=== PATIENT | female | born 1985 | race African-American/Black ===

== ENCOUNTER 2017-08-18 09:52 | Emergency (ER) | payer MEDICAID ==
[~2017-08-18] VITALS: Ht 160 cm; Wt 125.6 kg
[2017-08-18] MEDS ORDERED: IPRATROPIUM BROM 0.5 MG/2.5ML INH SOL NEB ONE (10:30)
[2017-08-18] MEDS ORDERED: ALBUTEROL SULF 2.5 MG/0.5ML(0.5%) NEB SOLN NEB ONE (10:30)
[2017-08-18] MEDS ORDERED: methylPREDNISolone SOD SUCC 125 MG/2 ML VL IM ONE (10:30)
[2017-08-18 10:33] VITALS: BP 145/76
[2017-08-18 10:54] LABS: Basophils # (auto) 0.1 uL; Basophils % (auto) 1.1 % (0.0-2.0); Eosinophils # (auto) 0.4 uL; Eosinophils % (auto) 5.3 % (0.0-7.0); Hematocrit 37.7 % (36.0-46.0); Hemoglobin 12.5 g/dL (12.2-16.2); Lymphocytes # (auto) 2.4 uL; Lymphocytes % (auto) 35.4 % (10.0-50.0); Mean Corpuscular Hemoglobin 28.9 pg (28.0-32.0); Mean Corpuscular Hgb Conc. 33.1 g/dL (32.0-36.0); Mean Corpuscular Volume 87.3 fL (80.0-100.0); Monocytes # (auto) 0.4 uL; Monocytes % (auto) 5.3 % (0.0-12.0); Neutrophils # (auto) 3.5 uL; Neutrophils % (auto) 52.9 % (37.0-80.0); Platelet Count (auto) 286 10^3/uL (140-450); Red Blood Cells 4.32 10^6/uL (4.0-5.20); Red Cell Distribution Width 14.5 % (11.8-14.3); White Blood Cell 6.7 10^3/uL (4.4-10.8)
[2017-08-18 11:18] LABS: Alanine Aminotransferase 12 U/L (13-56); Albumin 3.3 g/dL (3.4-5.0); Alkaline Phosphatase 85 U/L (45-117); Anion Gap 8 (5-15); Aspartate Aminotransferase 10 U/L (15-37); Bilirubin, Total 0.2 mg/dL (0.2-1.0); Blood Urea Nitrogen 12 mg/dL (7-18); Calcium 8.9 mg/dL (8.5-10.1); Carbon Dioxide 21 mmol/L (21-32); Chloride 108 mmol/L (98-107); GFR African American 141 mL/min; GFR Non-African American 116 mL/min; Glucose 96 mg/dL (74-106); Potassium 3.8 mmol/L (3.5-5.1); Sodium 137 mmol/L (136-145); Total Protein 7.6 g/dL (6.4-8.2)
[2017-08-18 11:34] LABS: Urine Bacteria FEW /hpf (None Seen); Urine Blood 1+ /uL (Negative); Urine Specific Gravity 1.016 (1.001-1.035); Urine WBC 2 /hpf (0 - 5)
[2017-08-19] MEDS ORDERED: ALBU2TAB4 PO ×2 (05:17)
== END 2017-08-18 12:23 | disposition home or self-care (01) ==
LOC: ER 09:52
DX: J45.901 Unspecified asthma with (acute) exacerbation (principal)
CPT/HCPCS: 36415; 71045; 80053; 81001; 84484; 85025; 94640; 96372; 99285; J2930

== ENCOUNTER 2017-08-18 21:52 | Inpatient (IN) | payer MEDICAID ==
[~2017-08-18] VITALS: Ht 167.6 cm; Wt 125.5 kg
[2017-08-18 22:25] LABS: Basophils # (auto) 0 uL; Basophils % (auto) 0.4 % (0.0-2.0); Eosinophils # (auto) 0 uL; Eosinophils % (auto) 0.1 % (0.0-7.0); Hematocrit 38.1 % (36.0-46.0); Hemoglobin 12.7 g/dL (12.2-16.2); Lymphocytes # (auto) 1.3 uL; Mean Corpuscular Hgb Conc. 33.2 g/dL (32.0-36.0); Mean Corpuscular Volume 87.3 fL (80.0-100.0); Monocytes # (auto) 0.1 uL; Monocytes % (auto) 0.9 % (0.0-12.0); Neutrophils # (auto) 8.2 uL; Neutrophils % (auto) 85.6 % (37.0-80.0); Nucleated Red Blood Cells % 0.1 %; Platelet Count (auto) 347 10^3/uL (140-450); Red Blood Cells 4.36 10^6/uL (4.0-5.20); Red Cell Distribution Width 14.1 % (11.8-14.3); White Blood Cell 9.6 10^3/uL (4.4-10.8)
[2017-08-18 22:42] LABS: Alanine Aminotransferase 16 U/L (13-56); Albumin 3.4 g/dL (3.4-5.0); Anion Gap 14 (5-15); Aspartate Aminotransferase 7 U/L (15-37); BUN/Creatinine Ratio 10.5; Blood Urea Nitrogen 10 mg/dL (7-18); Calcium 9.6 mg/dL (8.5-10.1); Carbon Dioxide 18 mmol/L (21-32); Chloride 105 mmol/L (98-107); GFR African American 88 mL/min; GFR Non-African American 72 mL/min; Glucose 207 mg/dL (74-106); Potassium 3.4 mmol/L (3.5-5.1); Sodium 137 mmol/L (136-145)
[2017-08-18 22:46] LABS: Alkaline Phosphatase 86 U/L (45-117); Bilirubin, Total 0.3 mg/dL (0.2-1.0); Total Protein 7.8 g/dL (6.4-8.2)
[2017-08-18 23:11] LABS: Urine Bacteria NONE SEEN /hpf (None Seen); Urine Blood 1+ /uL (Negative); Urine Mucus FEW (None Seen); Urine Specific Gravity 1.022 (1.001-1.035); Urine WBC 2 /hpf (0 - 5)
[2017-08-18] MEDS ORDERED: IPRATROPIUM BROM 0.5 MG/2.5ML INH SOL NEB ONE (23:15)
[2017-08-18] MEDS ORDERED: ALBUTEROL SULF 2.5 MG/0.5ML(0.5%) NEB SOLN NEB ONE (23:15)
[2017-08-18] MEDS ORDERED: SODIUM CHLORIDE 0.9% 1,000 ML IV ONE (23:15)
[2017-08-18] MEDS ORDERED: LEVOFLOXACIN 750MG 150 ML IV ONE (23:15)
[2017-08-18] MEDS ORDERED: methylPREDNISolone SOD SUCC 125 MG/2 ML VL IV ONE (23:15)
[2017-08-18 23:24] LABS: INR 0.95 (0.9-1.15); Partial Thromboplastin Time 23.8 sec (22.64-33.71); Prothrombin Time 10.4 sec (9.37-12.3)
[2017-08-18 23:26] LABS: Alcohol, Urine < 3.0 mg/dL (0-5); Amphetamine Screen, Urine NEGATIVE (NEGATIVE); Barbiturate Scree,Urine NEGATIVE (NEGATIVE); Benzodiazephine Screen, Urine NEGATIVE (NEGATIVE); Cannabinoid Screen, Urine NEGATIVE (NEGATIVE); Cocaine Screen, Urine NEGATIVE (NEGATIVE); Opiate Scree,Urine NEGATIVE (NEGATIVE); Phencyclidine Screen, Urine NEGATIVE (NEGATIVE)
[2017-08-18] MEDS ORDERED: IOHEXOL 350 MG/ML 100ML IJ ONE (23:56)
[2017-08-19] VITALS (7 sets, daily range): BP systolic 124–138; BP diastolic 57–85
[2017-08-19] MEDS ORDERED: diphenhdrAMINE HCL 50 MG/1 ML VL IV ONE (00:15)
[2017-08-19] MEDS ORDERED: ENOXAPARIN SOD 120 MG/0.8 ML SYRINGE SC ONE (01:30)
[2017-08-19] MEDS ORDERED: ALBUTEROL SULF 2.5 MG/0.5ML(0.5%) NEB SOLN NEB PRN (03:15)
[2017-08-19] MEDS ORDERED: HYDROcodone-ACET 5/325MG TAB PO PRN (03:15)
[2017-08-19] MEDS ORDERED: TEMAZEPAM 15 MG CAP PO PRN (03:15)
[2017-08-19] MEDS ORDERED: ACETAMINOPHEN 325 MG TAB PO PRN (03:15)
[2017-08-19] MEDS ORDERED: IPRATROPIUM BROM 0.5 MG/2.5ML INH SOL NEB PRN (03:15)
[2017-08-19] MEDS ORDERED: ONDANSETRON HCL 4 MG/2 ML VIAL IV PRN (03:15)
[2017-08-19] MEDS: SODIUM CHLORIDE 0.9% 1,000 ML IV SCH ×2 (03:47→16:57)
[2017-08-19] MEDS: cefTRIAXone 1GM/10ml IVPUSH 10 ML IV SCH (04:28)
[2017-08-19] MEDS ORDERED: ALBU2TAB4 PO ×2 (05:17)
[2017-08-19] MEDS: ENOXAPARIN SOD 40 MG/0.4 ML SYRINGE SC SCH (10:19)
[2017-08-19] MEDS: methylPREDNISolone SOD SUCC 125 MG/2 ML VL IV SCH ×2 (10:20→21:33)
[2017-08-19] MEDS: FAMOTIDINE 20 MG TAB PO SCH ×2 (10:20→21:33)
[2017-08-20] MEDS: cefTRIAXone 1GM/10ml IVPUSH 10 ML IV SCH (04:01)
[2017-08-20 05:17] LABS: Basophils # (auto) 0.1 uL; Basophils % (auto) 0.5 % (0.0-2.0); Eosinophils # (auto) 0 uL; Hematocrit 36.2 % (36.0-46.0); Lymphocytes # (auto) 1.2 uL; Mean Corpuscular Hemoglobin 28.8 pg (28.0-32.0); Mean Corpuscular Hgb Conc. 33.2 g/dL (32.0-36.0); Mean Corpuscular Volume 86.9 fL (80.0-100.0); Monocytes # (auto) 0.2 uL; Monocytes % (auto) 0.9 % (0.0-12.0); Neutrophils # (auto) 15.1 uL; Neutrophils % (auto) 91.6 % (37.0-80.0); Platelet Count (auto) 355 10^3/uL (140-450); Red Blood Cells 4.17 10^6/uL (4.0-5.20); Red Cell Distribution Width 14.4 % (11.8-14.3); White Blood Cell 16.5 10^3/uL (4.4-10.8)
[2017-08-20 05:40] VITALS: BP 120/63
[2017-08-20 05:50] LABS: Albumin 3.3 g/dL (3.4-5.0); BUN/Creatinine Ratio 22.4; Bilirubin, Total 0.2 mg/dL (0.2-1.0); Magnesium 2.5 mg/dL (1.6-2.6); Phosphorus 2.9 mg/dL (2.5-4.90); Potassium 3.7 mmol/L (3.5-5.1); Total Protein 7.4 g/dL (6.4-8.2)
[2017-08-20] MEDS: SODIUM CHLORIDE 0.9% 1,000 ML IV SCH (06:33)
[2017-08-20 07:29] VITALS: BP 133/72
[2017-08-20] MEDS: methylPREDNISolone SOD SUCC 125 MG/2 ML VL IV SCH (10:04)
[2017-08-20] MEDS: ENOXAPARIN SOD 40 MG/0.4 ML SYRINGE SC SCH (10:04)
[2017-08-20] MEDS: FAMOTIDINE 20 MG TAB PO SCH (10:04)
[2017-08-20 11:35] VITALS: BP 128/67
[2017-08-20] MEDS ORDERED: PRE5T PO ×2 (13:19)
[2017-08-20] MEDS ORDERED: FLUT250M2 IN ×2 (13:19)
== END 2017-08-20 16:16 | disposition home or self-care (01) | DRG 134 ==
LOC: EDBD 21:52 → ER 21:52 → OVERFLOW 21:53 → WEST WING 08-19 04:00
PROVIDERS: ADMIT Nurse Practitioner; ATTEND Nurse Practitioner
DX: I26.99 Other pulmonary embolism without acute cor pulmonale (principal); J45.901 Unspecified asthma with (acute) exacerbation; I10 Essential (primary) hypertension; J20.9 Acute bronchitis, unspecified; E66.01 Morbid (severe) obesity due to excess calories; Z87.01 Personal history of pneumonia (recurrent); Z82.5 Family history of asthma and other chronic lower respiratory diseases; Z91.013 Allergy to seafood; Z91.018 Allergy to other foods
CPT/HCPCS: 36415; 71045; 71275; 80053; 80307; 81001; 81025; 83036; 83735; 83880; 84100; 84443; 84484; 85025; 85379; 85610; 85730; 87400; 93005; 94640; 94761; 96365; 96366; 96372; 96375; J1956

== ENCOUNTER 2018-10-10 | Observation (INO) | payer MEDICAID ==
[~2018-10-10] VITALS: Ht 160 cm; Wt 99.8 kg
[~2018-10-10] MED LIST: ALBU2TAB4 PO; FLUT250M2 IN; PRE5T PO
[2018-10-10] MEDS ORDERED: PREN-145 OR (00:34)
[2018-10-10] MEDS ORDERED: FERR27TA2 PO (00:35)
[2018-10-10] MEDS ORDERED: LACTATED RINGER'S 1,000 ML IV ONE (01:07)
[2018-10-10] MEDS ORDERED: TERBUTALINE SULFATE 1 MG/ML 1ML VIAL SC ONE (01:11)
[2018-10-10] MEDS: TERBUTALINE SULFATE 1 MG/ML 1ML VIAL SC SCH ×2 (01:17→02:25)
== END 2018-10-10 03:15 | disposition home or self-care (01) | DRG 563 ==
LOC: LDRP
PROVIDERS: ADMIT Obstetrics & Gynecology; ATTEND Obstetrics & Gynecology
DX: O60.02 Preterm labor without delivery, second trimester (principal); J45.909 Unspecified asthma, uncomplicated; O99.512 Diseases of the respiratory system complicating pregnancy, second trimester; Z3A.26 26 weeks gestation of pregnancy
CPT/HCPCS: 59025; 81002; 96372; G0378; J3105

== ENCOUNTER 2018-12-05 22:02 | Observation (INO) | payer MEDICAID ==
[~2018-12-05] VITALS: Ht 162.6 cm; Wt 115.7 kg
[~2018-12-05 22:02] MED LIST changes: +FERR27TA2 PO; +PREN-145 OR
== END 2018-12-05 23:14 | disposition home or self-care (01) | DRG 565 ==
LOC: LDRP 22:02
PROVIDERS: ADMIT Obstetrics & Gynecology; ATTEND Obstetrics & Gynecology
DX: O47.1 False labor at or after 37 completed weeks of gestation (principal); O46.93 Antepartum hemorrhage, unspecified, third trimester; Z3A.38 38 weeks gestation of pregnancy
CPT/HCPCS: 59025; 81002; G0378

== ENCOUNTER 2018-12-29 16:25 | Observation (INO) | payer OTHER, MEDICAID ==
[~2018-12-29 16:25] MED LIST changes: -PRE5T PO
[2018-12-29 18:03] LABS: Alcohol, Urine < 3.0 mg/dL (0-5); Amphetamine Screen, Urine NEGATIVE (NEGATIVE); Barbiturate Scree,Urine NEGATIVE (NEGATIVE); Benzodiazephine Screen, Urine NEGATIVE (NEGATIVE); Cannabinoid Screen, Urine NEGATIVE (NEGATIVE); Cocaine Screen, Urine NEGATIVE (NEGATIVE); Opiate Scree,Urine NEGATIVE (NEGATIVE); Phencyclidine Screen, Urine NEGATIVE (NEGATIVE)
[2018-12-29 18:08] LABS: Urine Bacteria NONE SEEN /hpf (None Seen); Urine Blood Negative /uL (Negative); Urine Specific Gravity 1.018 (1.001-1.035); Urine WBC 5 /hpf (0 - 5)
[2018-12-29 18:09] LABS: Basophils # (auto) 0 uL; Basophils % (auto) 0.3 % (0.0-2.0); Eosinophils # (auto) 0 uL; Eosinophils % (auto) 0.6 % (0.0-7.0); Hematocrit 34.8 % (36.0-46.0); Hemoglobin 11.9 g/dL (12.2-16.2); Lymphocytes # (auto) 1.5 uL; Lymphocytes % (auto) 24.6 % (10.0-50.0); Mean Corpuscular Hemoglobin 31.3 pg (28.0-32.0); Mean Corpuscular Hgb Conc. 34.2 g/dL (32.0-36.0); Mean Corpuscular Volume 91.6 fL (80.0-100.0); Monocytes # (auto) 0.2 uL; Monocytes % (auto) 3.7 % (0.0-12.0); Neutrophils # (auto) 4.3 uL; Neutrophils % (auto) 70.8 % (37.0-80.0); Platelet Count (auto) 229 10^3/uL (140-450); Red Cell Distribution Width 14.5 % (11.8-14.3)
[2018-12-29 18:12] LABS: Albumin 2.5 g/dL (3.4-5.0); BUN/Creatinine Ratio 9.7; Potassium 3.8 mmol/L (3.5-5.1)
[2018-12-29 18:14] LABS: Bilirubin, Total 0.2 mg/dL (0.2-1.0); Total Protein 6.6 g/dL (6.4-8.2)
[2018-12-29 18:22] LABS: INR < 0.93 (0.9-1.15); Partial Thromboplastin Time 25.8 sec (23.64-32.05)
[2019-01-02 05:37] LABS: RPR Non Reactive (Non Reactive)
[2019-01-02 05:38] LABS: Rubella Antibodies, IgG 0.92 index (Immune >0.99)
== END 2018-12-29 19:25 | disposition home or self-care (01) | DRG 566 ==
LOC: LDRP 16:25
PROVIDERS: ADMIT Obstetrics & Gynecology; ATTEND Obstetrics & Gynecology
DX: O36.8130 Decreased fetal movements, third trimester, not applicable or unspecified (principal); O26.893 Other specified pregnancy related conditions, third trimester; R10.9 Unspecified abdominal pain; Z3A.38 38 weeks gestation of pregnancy
CPT/HCPCS: 36415; 59025; 76805; 76818; 80053; 80307; 81001; 81002; 82962; 85025; 85610; 85730; 86592; 86703; 86762; 86850; 86900; 86901; 87340; G0378

== ENCOUNTER 2021-02-10 23:46 | Emergency (ER) | payer MEDICAID, OTHER ==
[~2021-02-10] VITALS: Ht 162.6 cm; Wt 131.5 kg
[2021-02-11 02:49] LABS: Basophils # (auto) 0.1 10 ^3/uL (0-0.2); Basophils % (auto) 0.6 % (0.0-2.0); Eosinophils # (auto) 0 10 ^3/uL (0-0.8); Eosinophils % (auto) 0.3 % (0.0-7.0); Hematocrit 25.6 % (36.0-46.0); Hemoglobin 8.7 g/dL (12.2-16.2); Lymphocytes # (auto) 1.6 10 ^3/uL (0.4-5.4); Lymphocytes % (auto) 16.1 % (10.0-50.0); Mean Corpuscular Hemoglobin 29.8 pg (28.0-32.0); Mean Corpuscular Hgb Conc. 33.9 g/dL (32.0-36.0); Monocytes # (auto) 0.2 10 ^3/uL (0-1.3); Neutrophils # (auto) 8.1 10 ^3/uL (1.6-8.6); Red Blood Cells 2.91 10^6/uL (4.0-5.20); Red Cell Distribution Width 14.5 % (11.8-14.3)
[2021-02-11 03:05] LABS: Calcium 8.3 mg/dL (8.5-10.1)
[2021-02-11 03:10] LABS: BUN/Creatinine Ratio 13.9; Bilirubin, Total 0.3 mg/dL (0.2-1.0); Total Protein 6.6 g/dL (6.4-8.2)
[2021-02-11] MEDS ORDERED: METHYLERGONOVINE MALEATE 0.2 MG/ML AMP IM ONE (04:15)
[2021-02-11 05:58] VITALS: BP 129/65
== END 2021-02-11 06:34 | disposition home or self-care (01) ==
LOC: ER 23:48
DX: O03.9 Complete or unspecified spontaneous abortion without complication (principal); D64.9 Anemia, unspecified; J45.909 Unspecified asthma, uncomplicated; Z79.899 Other long term (current) drug therapy; Z91.013 Allergy to seafood
CPT/HCPCS: 36415; 80053; 84702; 85025; 86850; 86900; 86901; 96372; 99285; J2210

== ENCOUNTER 2025-07-14 01:06 | Inpatient (IN) | payer MEDICAID ==
[~2025-07-14] VITALS: Ht 160 cm; Wt 139.2 kg
[~2025-07-14 01:06] MED LIST changes: +ALBU2TAB11 PO; -ALBU2TAB4 PO; +FERR1TAB31 PO; -FERR27TA2 PO
--- NOTE | 2025-07-14 02:08 | ED.PDOC ---
GI ASSESSMENT HPI Comments 40 year-old female, with a Hx of Asthma, HTN, and DM, presents to the ED via wheelchair with a chief complaint of RUQ abdominal pain with abdominal distention S/P eating spicy jalapeo peppers hours ago. Patient reports RUQ abdominal pain as constant, radiating to the back, with no known alleviating factors. There are no further complaints or modifying factors at this time. Patient denies symptoms of N/V/D, constipation, hematuria, chest pain, or fever. Chief Complaint: Abdominal Pain Time Seen by MD: 01:55 Primary Care Provider: DENIES Reviewed Notes: Medications, Allergies Allergies: Coded Allergies: Shellfish Allergy (Verified Allergy, Unknown, SHRIMP, 08/19/17) Shrimp Flavor (Verified Allergy, Unknown, 08/19/17) Home Meds Active Scripts Fluticasone-Salmeterol (Advair Diskus 250/50) 1 Puff Ih, 1 PUFF IN BID, #1 % Prov:ABHINAV GALE DNP 08/20/17 Reported Medications Ferrous Gluconate (IRON) 27 Mg Tab, 27 MG PO, TAB 10/10/18 Vit W/ Ferrous Fumara (PNV FOLIC ACID + IRON MUL) + Iron Tab, 1 IRON OR, TAB 10/10/18 Albuterol Sulfate (Albuterol Sulfate) 2 Mg Tab, 2 MG PO Q6HP PRN for SHORTNESS OF BREATH, MG 08/19/17 Information Source: Patient Mode of Arrival: Ambulatory Severity: Moderate Pain Location: RUQ Associated sign and symptoms: Abdominal Pain Past Medical History PAST MEDICAL HISTORY: Asthma, DM, HTN Surgical History: SPIRITUAL ADVISOR History: No Pertinent SPIRITUAL ADVISOR History Family History Family History: Reviewed,noncontributory to illness Social History Smoker: Non-Smoker Alcohol: Denies ETOH Use Drugs: Denies Drug Use Lives In: Home Constitutional: denies: chills, diaphoresis, fatigue, fever, malaise, sweats, weakness, others EENTM: denies: blurred vision, double vision, ear bleeding, ear discharge, ear drainage, ear pain, ear ringing, eye pain, eye redness, hearing loss, mouth pain, mouth swelling, nasal discharge, nose bleeding, nose congestion, nose pain, photophobia, tearing, throat pain, throat swelling, voice changes, others Respiratory: denies: cough, hemoptysis, orthopnea, SOB at rest, shortness of breath, SOB with excertion, stridor, wheezing, others Cardiovascular: denies: chest pain, dizzy spells, diaphoresis, Dyspnea on exertion, edema, irregular heart beat, left arm pain, lightheadedness, palpitations, PND, syncope, others Gastrointestinal: reports: abdomen distended, abdominal pain; denies: blood streaked bowels, constipated, diarrhea, dysphagia, difficulty swallowing, hematemesis, melena, nausea, poor appetite, poor fluid intake, rectal bleeding, rectal pain, vomiting, others Genitourinary: denies: abnormal vagina bleeding, burning, dyspareunia, dysuria, flank pain, frequency, hematuria, incontinence, pain, , vagina discharge, urgency, others Neurological: denies: dizziness, fainting, headache, left sided numbness, left sided weakness, numbness, paresthesia, pre-existing deficit, right sided numbness, right sided weakness, seizure, speech problems, tingling, tremors, weakness, others Musculoskeletal: denies: back pain, gout, joint pain, joint swelling, muscle pain, muscle stiffness, neck pain, others Integumetry: denies: bruises, change in color, change in hair/nails, dryness, laceration, lesions, lumps, rash, wounds, others Allergic/Immunocompromised: denies: Difficulty Healing, Frequent Infections, Hives, Itching, others Hematologic/Lymphatic: denies: anemia, blood clots, easy bleeding, easy bruising, swollen glands, others Endocrine: denies: excessive hunger, excessive sweating, excessive thirst, excessive urination, flushing, intolerance to cold, intolerance to heat, unexplained weight gain, unexplained weight loss, others Psychiatric: denies: anxiety, bipolar disorder, depression, hopeless, panic disorder, schizophrenia, sleepless, suicidal, others All Other Systems: Reviewed and Negative Physical Exam General Appearance: Mild Distress, Normal HEENT: Normal ENT Inspection, Pharynx Normal, TMs Normal Neck: Full Range of Motion, Non-Tender, Normal, Normal Inspection Respiratory: Chest Non-Tender, Lungs Clear, No Accessory Muscle Use, No Respiratory Distress, Normal Breath Sounds Cardiovascular: No Edema, No JVD, No Murmur, No Gallop, Normal Peripheral Pulses, Regular Rate/Rhythm Breast Exam: Deferred Gastrointestinal: No Organomegaly, No Pulsatile Mass, Normal Bowel Sounds, RUQ, Tenderness Genitalia: Deferred Pelvic: Deferred Rectal: Deferred Extremities: No calf tenderness, Normal capillary refill, Normal inspection, Normal range of motion, Non-tender, No pedal edema Musculoskeletal : Apperance: Normal Neurologic: Alert, electro mechanical designer II-XII nml as Tested, No Motor Deficits, Normal Affect, Normal Mood, No Sensory Deficits Cerebellar Function: Normal Reflexes: Normal Skin: Dry, Normal Color, Warm Lymphatic: No Adenopathy Was a procedure done? Was a procedure done?: No GI differential Dx Differential Diagnosis: Threatened , Constipation, Gastritis/PUD, Gastroenteritis, Inflammatory BD, UTI, Dehydration, Food Poisoning, , Bacterial, Parasitic, Viral X-Ray, Labs, Meds, VS Vital Signs Date Time Temp Pulse Resp B/P (MAP) Pulse Ox O2 Delivery O2 Flow Rate FiO2 07/14/25 02:50 62 16 07/14/25 02:47 98.5 59 144/64 (90) 98 98.5 07/14/25 02:42 144/64 07/14/25 01:09 97.8 61 20 173/85 100 97.8 Lab Test 07/14/25 02:10 Range/Units White Blood Count 7.0 4.4-10.8 10^3/uL Red Blood Count 4.01 4.0-5.20 10^6/uL Hemoglobin 10.3 L 12.2-16.2 g/dL Hematocrit 31.8 L 36.0-46.0 % Mean Corpuscular Volume 79.3 L 80.0-100.0 fL Mean Corpuscular Hemoglobin 25.7 L 28.0-32.0 pg Mean Corpuscular Hemoglobin Concent 32.4 32.0-36.0 g/dL Red Cell Distribution Width 16.1 H 11.8-14.3 % Platelet Count 349 140-450 10^3/uL Mean Platelet Volume 8.0 6.9-10.8 fL Neutrophils (%) (Auto) 74.2 37.0-80.0 % Lymphocytes (%) (Auto) 20.6 10.0-50.0 % Monocytes (%) (Auto) 3.5 0.0-12.0 % Eosinophils (%) (Auto) 1.4 0.0-7.0 % Basophils (%) (Auto) 0.3 0.0-2.0 % Neutrophils # (Auto) 5.2 1.6-8.6 10 ^3/uL Lymphocytes # (Auto) 1.4 0.4-5.4 10 ^3/uL Monocytes # (Auto) 0.2 0-1.3 10 ^3/uL Eosinophils # (Auto) 0.1 0-0.8 10 ^3/uL Basophils # (Auto) 0 0-0.2 10 ^3/uL Nucleated Red Blood Cells 0.0 % Sodium Level 138 136-145 mmol/L Potassium Level 4.0 3.5-5.1 mmol/L Chloride Level 104 98-107 mmol/L Carbon Dioxide Level 26 20-31 mmol/L Anion Gap 8 5-15 Blood Urea Nitrogen 13 9-23 mg/dL Creatinine 0.88 0.550-1.02 mg/dL Glomerular Filtration Rate Calc 85 >90 mL/min BUN/Creatinine Ratio 14.8 10.0-20.0 Serum Glucose 164 H 74-106 mg/dL Calcium Level 9.5 8.7-10.4 mg/dL Total Bilirubin 0.4 0.2-1.0 mg/dL Direct Bilirubin 0.1 <0.3 mg/dL Aspartate Amino Transferase (AST) 10 L 13-40 U/L Alanine Aminotransferase (ALT) 10 7-40 U/L Alkaline Phosphatase 92 46-116 U/L Total Protein 7.1 5.7-8.2 g/dL Albumin 4.2 3.2-4.8 g/dL Lipase 32 12-53 U/L Beta HCG, Quantitative 0.5 L 1.5-4.2 mIU/mL Current Medications Medications (Trade) Dose Ordered Sig/Bret Route Start Time Stop Time Status Last Admin Fentanyl Citrate 25 mcg ONCE ONCE IM 07/14/25 02:15 07/14/25 02:16 DC 07/14/25 02:42 Ondansetron HCl (Zofran) 4 mg ONCE ONCE IM 07/14/25 02:15 07/14/25 02:16 DC 07/14/25 02:[address] [address] Ph: [phone] DIAGNOSTIC IMAGING Diagnostic Imaging Report : [id number] Signed PATIENT: GREGORIA WICK ACCT: [id number] UNIT: [id number] : 1985 LOC: ER ROOM / BED: / AGE / SEX: 40 / F ADM STATUS: REG ER SERVICE 0201 ORDERING PHYSICIAN: VANCE GARCIA MD PROCEDURE(s): GBUS - GALLBLADDER REASON: gs ORDER NUMBER(s): [id number], ACCESSION NUMBER(s): [id number] EXAM: US GALLBLADDER INDICATION: gs TECHNIQUE: Multiple real-time sonographic images were obtained of the right upper quadrant. COMPARISON: None FINDINGS: The liver demonstrates increased echotexture without focal mass lesions. The liver measures 20.3 cm. There is hepatopedal color doppler flow in the main portal vein. There is no intrahepatic biliary ductal dilatation. The gallbladder contains several gallstones, both mobile and immobile. The gallbladder wall measures 0.4 cm. The common bile duct measures 0.3 cm. There is a positive sonographic Plascencia's sign. The right kidney measures 10.9 cm. The right kidney is normal in contour, s ize, and shape. The echogenicity is normal. There is no hydronephrosis. The pancreas is not well visualized due to overlying bowel gas. Visualized portions of the aorta and inferior vena cava are unremarkable. No evidence of ascites. IMPRESSION: 1. Gallstones and findings concerning for acute cholecystitis. 2. Hepatomegaly and hepatic steatosis. X-Ray, Labs, Meds, VS Comment Previous history reviewed: Asthma, HTN, DM, The following tests were ordered, and results were reviewed by me: CBC, BMP, Hepatic Panel, BETA HCG, GALLBLADDER US Additional Information was gathered from interviewing the following independent historians: Pt was last seen at [facility] for on 02/10/21. Patient was admitted to [facility] most recently on 08/18/17 for Acute Asthma Exacerbation. I reviewed and agreed with the following test results read by other providers: Gallbladder US I discussed treatment and results with medical personnel and: Patient Comprehensive systems review obtained and negative except for what is stated in the HPI. Time of 1ST Reevaluation: 02:20 Reevaluation 1ST: Unchanged Patient Education/Counseling: Diagnosis, Treatment Family Education/Counseling: Diagnosis, Treatment Comments This is a patient who has a family history of biliary pathologies presents with sudden onset of right upper quadrant epigastric pain that radiates to the back. The workup shows patient has findings consistent with acute cholecystitis on ultrasound. The however her blood count is unremarkable lipase is normal and she is afebrile with normal vital signs. Patient will be admitted for antibiotics and treatment biliary colic with a possible cholecystitis. SEPSIS Sepsis Screen Date sepsis recognized/suspect: Jul 14, 2025 Time Sepsis recognized/suspect: 011 Recent Procedure: No On Antibiotic Therapy: No Respiratory Rate >20: No Heart Rate >90: No Temp<36 C (96.8 F) or >38.3 C: No SBP <90 or MAP <65 mmHG: No New Acute Mental Status Change: No Is the patient on CPAP, BIPAP,: No Physician Orders Gallbladder (07/14/25 02:01) Ceftriaxone Ivpb Rocephin (07/14/25 05:30) NS (07/14/25 05:30) Vital Signs Date Time Temp Pulse Resp B/P (MAP) Pulse Ox O2 Delivery O2 Flow Rate FiO2 07/14/25 02:50 62 16 07/14/25 02:47 98.5 59 144/64 (90) 98 98.5 07/14/25 02:42 144/64 07/14/25 01:09 97.8 61 20 173/85 100 97.8 Laboratory Tests Test 07/14/25 02:10 White Blood Count 7.0 10^3/uL (4.4-10.8) Medications Medications Dose Ordered Sig/Bret Route Start Time Stop Time Status Last Admin Dose Admin Fentanyl Citrate 25 mcg ONCE ONCE IM 07/14/25 02:15 07/14/25 02:16 DC 07/14/25 02:42 Ondansetron HCl 4 mg ONCE ONCE IM 07/14/25 02:15 07/14/25 02:16 DC 07/14/25 02:38 Departure 1 Departure Time of Disposition: 05:20 Impression: Primary Impression: Cholecystitis Disposition: ADMITTED INPATIENT Admit to: Med Surg Condition: Serious Discharged With: Self Critical Care Note Critical Care Time?: No Stability Stability form required: No Heart Score Heart Score: Heart Score Response (Comments) Value History N/A 0 EKG N/A 0 Age N/A 0 Risk Factors N/A 0 Troponin N/A 0 Total 0 I personally scribed for VANCE GARCIA MD ([facility] on 07/14/25 at 02:08. Electronically submitted by Khloe Hardin ([facility]). I personally scribed for VANCE GARCIA MD ([facility]) on 07/14/25 at 02:10. Electronically submitted by Khloe Hardin ([facility]). I personally scribed for VANCE GARCIA MD ([facility] on 07/14/25 at 02:10. Electronically submitted by Khloe Hardin ([facility]). I personally scribed for VANCE GARCIA MD ([facility]RIEN) on 07/14/25 at 05:11. Electronically submitted by Khloe Hardin ([facility]). VANCE GARCIA MD Jul 14, 2025 02:08
[2025-07-14 02:23] LABS: Hemoglobin 10.3 g/dL (12.2-16.2); Nucleated Red Blood Cells % 0.0 %
[2025-07-14 02:24] LABS: Hematocrit 31.8 % (36.0-46.0); Mean Corpuscular Hemoglobin 25.7 pg (28.0-32.0); Mean Corpuscular Volume 79.3 fL (80.0-100.0)
[2025-07-14] MEDS: ONDANSETRON HCL 4 MG/2 ML VIAL IM ONE (02:38)
[2025-07-14] MEDS: fentaNYL CITRATE 100 MCG/2 ML VL IM ONE (02:42)
[2025-07-14 02:46] LABS: Alanine Aminotransferase 10 U/L (7-40); Albumin 4.2 g/dL (3.2-4.8); Alkaline Phosphatase 92 U/L (46-116); Anion Gap 8 (5-15); BUN/Creatinine Ratio 14.8 (10.0-20.0); Blood Urea Nitrogen 13 mg/dL (9-23); Calcium 9.5 mg/dL (8.7-10.4); Carbon Dioxide 26 mmol/L (20-31); Chloride 104 mmol/L (98-107); Lipase 32 U/L (12-53); Potassium 4.0 mmol/L (3.5-5.1); Sodium 138 mmol/L (136-145); Total Protein 7.1 g/dL (5.7-8.2)
[2025-07-14 02:47] LABS: Bilirubin, Total 0.4 mg/dL (0.2-1.0)
[2025-07-14 03:13] LABS: Glucose 164 mg/dL (74-106)
[2025-07-14 03:36] LABS: Bilirubin, Direct 0.1 mg/dL (<0.3)
--- NOTE | 2025-07-14 04:57 | DVH ---
EXAM: US GALLBLADDER INDICATION: gs TECHNIQUE: Multiple real-time sonographic images were obtained of the right upper quadrant. COMPARISON: None FINDINGS: The liver demonstrates increased echotexture without focal mass lesions. The liver measures 20.3 cm. There is hepatopedal color doppler flow in the main portal vein. There is no intrahepatic biliary ductal dilatation. The gallbladder contains several gallstones, both mobile and immobile. The gallbladder wall measures 0.4 cm. The common bile duct measures 0.3 cm. There is a positive sonographic Plascencia's sign. The right kidney measures 10.9 cm. The right kidney is normal in contour, size, and shape. The echogenicity is normal. There is no hydronephrosis. The pancreas is not well visualized due to overlying bowel gas. Visualized portions of the aorta and inferior vena cava are unremarkable. No evidence of ascites. IMPRESSION: 1. Gallstones and findings concerning for acute cholecystitis. 2. Hepatomegaly and hepatic steatosis.
[2025-07-14] MEDS: SODIUM CHLORIDE 0.9% 1,000 ML IV ONE (05:54)
[2025-07-14] MEDS ORDERED: DOCUSATE SOD 100 MG CAP PO PRN (08:15)
[2025-07-14] MEDS ORDERED: ONDANSETRON HCL 4 MG/2 ML VIAL IV PRN ×2 (08:15→12:45)
[2025-07-14] MEDS ORDERED: MORPHINE SULFATE 4 MG/ML SYR/VIAL IV PRN ×2 (08:30→12:45)
[2025-07-14] MEDS ORDERED: LOS25T PO (08:30)
[2025-07-14] MEDS: SODIUM CHLORIDE 0.9% 1,000 ML IV SCH ×2 (08:44→13:43)
[2025-07-14 08:51] VITALS: PULSE 61; RESP 18; O2SAT 100
--- NOTE | 2025-07-14 08:51 | DVHHP2 ---
History of Present Illness Reason for Visit: Abdominal pain History of Present Illness Teodora Singh is a 40-year-old female with pat medical history of asthma, hypertension, and new diagnosis of diabetes, who came to the hospital for abdominal pain. Patient states she has been experiencing epigastric pain that radiated to her RUQ since last night, 07/13/2025, about 2000. The pain began about 1 hour after eating dinner. She was recently diagnosed with diabetes, but not prescribed medications. She was going to try to lower her A1c with diet and exercise first. Cardiovascular: HTN Endocrine: Diabetes (new diagnosis, not on medications yet) Past Surgical History: (x 2) Smoke: No ALCOHOL: none Drugs: None Lives: with Family Domestic Violence: Neg Review of Systems Constitutional: No: Fever, Chills, Sweats, Weakness, Malaise, Other Eyes: No: Pain, Vision change, Conjunctivae inflammation, Eyelid inflammation, Other, Redness ENT: No: Ear pain, Ear discharge, Nose pain, Nose discharge, Nose congestion, Mouth pain, Mouth swelling, Throat pain, Throat swelling, Other Respiratory: No: Cough, Dry, Shortness of breath, SOB with excertion, Wheezing, Hemoptysis, Pleuritic Pain, Sputum, Wheezing, Other Cardiovascular: No: Chest Pain, Palpitations, Orthopnea, Paroxysmal Noc. Dyspnea, Edema, Lt Headedness, Other Gastrointestinal: Nausea, Abdominal Pain; No: Vomiting, Diarrhea, Constipation, Melena, Hematochezia, Other Musculoskeletal: No: other, neck pain, shoulder pain, arm pain, back pain, hand pain, leg pain, foot pain Skin: No: Rash, Lesions, Jaundice, Bruising, Other Neurological: Weakness, Numbness, Incoordination, Change in speech, Confusion, Seizures, Other Allergies: Coded Allergies: Shellfish Allergy (Verified Allergy, Unknown, SHRIMP, 08/19/17) Shrimp Flavor (Verified Allergy, Unknown, 08/19/17) Exam Vital Signs Vital Signs Date Time Temp Pulse Resp B/P (MAP) Pulse Ox O2 Delivery O2 Flow Rate FiO2 07/14/25 06:13 98.0 66 16 134/72 (92) 97 98.0 General Appearance: Alert, Oriented X3, mild distress HEENT: Atraumatic, PERRLA, Mucous membr. moist/pink Respiratory: Clear to auscultation, Normal air movement Cardiovascular: Regular rate, Normal S1, Normal S2, No murmurs Abdominal: Normal bowel sounds, Other (RUQ tenderness) Extremities: No clubbing, No cyanosis, No edema, Normal pulses Skin: No rashes, No breakdown, No significant lesion Neuro: Normal gait, Normal speech, Strength at 5/5 X4 ext Psych/Mental Status: Mental status NL, Mood NL Labs/Xrays Labs Test 07/14/25 02:10 Range/Units White Blood Count 7.0 4.4-10.8 10^3/uL Red Blood Count 4.01 4.0-5.20 10^6/uL Hemoglobin 10.3 L 12.2-16.2 g/dL Hematocrit 31.8 L 36.0-46.0 % Mean Corpuscular Volume 79.3 L 80.0-100.0 fL Mean Corpuscular Hemoglobin 25.7 L 28.0-32.0 pg Mean Corpuscular Hemoglobin Concent 32.4 32.0-36.0 g/dL Red Cell Distribution Width 16.1 H 11.8-14.3 % Platelet Count 349 140-450 10^3/uL Mean Platelet Volume 8.0 6.9-10.8 fL Neutrophils (%) (Auto) 74.2 37.0-80.0 % Lymphocytes (%) (Auto) 20.6 10.0-50.0 % Monocytes (%) (Auto) 3.5 0.0-12.0 % Eosinophils (%) (Auto) 1.4 0.0-7.0 % Basophils (%) (Auto) 0.3 0.0-2.0 % Neutrophils # (Auto) 5.2 1.6-8.6 10 ^3/uL Lymphocytes # (Auto) 1.4 0.4-5.4 10 ^3/uL Monocytes # (Auto) 0.2 0-1.3 10 ^3/uL Eosinophils # (Auto) 0.1 0-0.8 10 ^3/uL Basophils # (Auto) 0 0-0.2 10 ^3/uL Nucleated Red Blood Cells 0.0 % Sodium Level 138 136-145 mmol/L Potassium Level 4.0 3.5-5.1 mmol/L Chloride Level 104 98-107 mmol/L Carbon Dioxide Level 26 20-31 mmol/L Anion Gap 8 5-15 Blood Urea Nitrogen 13 9-23 mg/dL Creatinine 0.88 0.550-1.02 mg/dL Glomerular Filtration Rate Calc 85 >90 mL/min BUN/Creatinine Ratio 14.8 10.0-20.0 Serum Glucose 164 H 74-106 mg/dL Calcium Level 9.5 8.7-10.4 mg/dL Total Bilirubin 0.4 0.2-1.0 mg/dL Direct Bilirubin 0.1 <0.3 mg/dL Aspartate Amino Transferase (AST) 10 L 13-40 U/L Alanine Aminotransferase (ALT) 10 7-40 U/L Alkaline Phosphatase 92 46-116 U/L Total Protein 7.1 5.7-8.2 g/dL Albumin 4.2 3.2-4.8 g/dL Lipase 32 12-53 U/L Beta HCG, Quantitative 0.5 L 1.5-4.2 mIU/mL EXAM: US GALLBLADDER FINDINGS: The liver demonstrates increased echotexture without focal mass lesions. The liver measures 20.3 cm. There is hepatopedal color doppler flow in the main portal vein. There is no intrahepatic biliary ductal dilatation. The gallbladder contains several gallstones, both mobile and immobile. The g allbladder wall measures 0.4 cm. The common bile duct measures 0.3 cm. There is a positive sonographic Plascencia's sign. The right kidney measures 10.9 cm. The right kidney is normal in contour, size, and shape. The echogenicity is normal. There is no hydronephrosis. The pancreas is not well visualized due to overlying bowel gas. Visualized portions of the aorta and inferior vena cava are unremarkable. No evidence of ascites. IMPRESSION: 1. Gallstones and findings concerning for acute cholecystitis. 2. Hepatomegaly and hepatic steatosis. SEPSIS Sepsis Screen Date sepsis recognized/suspect: Jul 14, 2025 Time Sepsis recognized/suspect: 0115 Recent Procedure: No On Antibiotic Therapy: No Respiratory Rate >20: No Heart Rate >90: No Temp<36 C (96.8 F) or >38.3 C: No SBP <90 or MAP <65 mmHG: No New Acute Mental Status Change: No Is the patient on CPAP, BIPAP,: No Physician Orders Gallbladder (07/14/25 02:01) Admit (07/14/25 08:09) Code Status (07/14/25 08:09) 0.9% Ns 1000 Ml (07/14/25 08:15) Ondansetron Hcl (Zofran) (07/14/25 08:15) Docusate Sodium Capsule (Colace Capsule) (07/14/25 08:15) Complete Blood Count (07/15/25 04:00) Comprehensive Metabolic Panel (07/15/25 04:00) Npo (Nothing By Mouth) Diet (07/14/25 Breakfast) Condition: Serious (07/14/25 08:09) Acetaminophen Tablet (Tylenol Tablet) (07/14/25 08:15) Morphine Sulfate Injection (07/14/25 08:15) Chest Xray 1 View (07/14/25 08:09) Nm Hida Scan (07/14/25 08:09) PTPTT (07/14/25 08:09) * Surgical Consult (07/14/25 ) Hydrocodone-Acet 5/325mg Tab ([place] 5/32 (07/14/25 08:15) Vital Signs Date Time Temp Pulse Resp B/P (MAP) Pulse Ox O2 Delivery O2 Flow Rate FiO2 07/14/25 06:13 98.0 66 16 134/72 (92) 97 98.0 07/14/25 02:50 62 16 07/14/25 02:47 98.5 59 144/64 (90) 98 98.5 07/14/25 02:42 144/64 07/14/25 01:09 97.8 61 20 173/85 100 97.8 Laboratory Tests Test 07/14/25 02:10 White Blood Count 7.0 10^3/uL (4.4-10.8) Medications Medications Dose Ordered Sig/Bret Route Start Time Stop Time Status Last Admin Dose Admin Ceftriaxone Sodium 50 ml @ 100 mls/hr ONCE ONCE IV 07/14/25 05:30 07/14/25 05:59 DC 07/14/25 05:54 100 MLS/HR Fentanyl Citrate 25 mcg ONCE ONCE IM 07/14/25 02:15 07/14/25 02:16 DC 07/14/25 02:42 25 MCG Ondansetron HCl 4 mg ONCE ONCE IM 07/14/25 02:15 07/14/25 02:16 DC 07/14/25 02:38 4 MG Sodium Chloride 1,000 ml @ 1,000 mls/hr Q1H ONCE IV 07/14/25 05:30 07/14/25 06:29 DC 07/14/25 05:54 1,000 MLS/HR Assessment/Plan Assessment/Plan Assessment: Acute Cholecystitis, Possible cholelithiasis, Asthma, Hypertension, Diabetes, Obesity, Plan: Admit to Med-Surg, Surgical consult, PTPTT, chest X-ray, HIDA, scan, NPO, IV antibiotics, IV hydration, Pain management, Home medications reconciled, Plan discussed with: Patient My Orders Orders - GLADYS JACK Procedure Category Date Status Time Admit ADMIT 07/14/25 Transmitted 08:09 Code Status CODE 07/14/25 Transmitted 08:09 0.9% Ns 1000 Ml PHA 07/14/25 Transmitted 08:15 Ondansetron Hcl PHA 07/14/25 Transmitted (Zofran) 08:15 Docusate Sodium PHA 07/14/25 Transmitted Capsule (Colace 08:15 Complete Blood Count LAB 07/15/25 Verified 04:00 Comprehensive LAB 07/15/25 Verified Metabolic Panel 04:00 Npo (Nothing By DIET 07/14/25 Transmitted Mouth) Diet Breakfast Condition: Serious MIGUEL 07/14/25 Transmitted 08:09 Acetaminophen Tablet PHA 07/14/25 Transmitted (Tylenol Tablet) 08:15 Morphine Sulfate PHA 07/14/25 Transmitted Injection 08:15 Chest Xray 1 View XY 07/14/25 Logged 08:09 Nm Hida Scan NM 07/14/25 Logged 08:09 PTPTT LAB 07/14/25 Transmitted 08:09 * Surgical Consult CONS 07/14/25 Transmitted Hydrocodone-Acet PHA 07/14/25 Transmitted 5/325mg Tab ([place] 08:15 Date of Service: Jul 14, 2025 Billing Provider: GLADYS JACK Common Visit Codes: [id number] INP/OBS CARE (HIGH) GLADYS JACK Jul 14, 2025 08:51
--- NOTE | 2025-07-14 09:01 | DVH ---
CLINICAL INFORMATION: Preoperative examination. TECHNIQUE: Single AP portable chest radiograph was obtained. COMPARISON: None FINDINGS: Lungs: Clear. Cardiac: Heart size is within normal limits. Pulmonary vasculature: Unremarkable. Mediastinum/elliott: Unremarkable. Bones: No acute osseous abnormality identified. Other: No other significant findings. IMPRESSION: No evidence of acute disease in the chest.
[2025-07-14 09:23] LABS: INR 1.0 (0.9-1.15); Partial Thromboplastin Time 29.6 SEC (24.5-34.5); Prothrombin Time 10.6 sec (9.3-11.8)
--- NOTE | 2025-07-14 09:37 | DVHINCON2 ---
Date of service: Jul 14, 2025 History of Present Illness 40-year-old female with a history of hypertension, diabetes and asthma admitted secondary to one day history of right upper quadrant abdominal pain. Patient denies any fevers, chills, nausea or vomiting. Past Medical History Hypertension. Diabetes. Asthma. Obesity. Past Surgical History Two C-sections Family History: Asthma G8 MOTHER FH: pneumonia G8 MOTHER Hypertension G8 SISTER Transient ischemic attacks G8 MOTHER Family History Noncontributory Social History Denies alcohol, tobacco, IV drug use Allergies: Coded Allergies: Shellfish Allergy (Verified Allergy, Unknown, SHRIMP, 08/19/17) Shrimp Flavor (Verified Allergy, Unknown, 08/19/17) Home Meds Active Scripts Fluticasone-Salmeterol (Advair Diskus 250/50) 1 Puff Ih, 1 PUFF IN BID, #1 % Prov:ABHINAV GALE DNP 08/20/17 Reported Medications Losartan Potassium (Losartan Potassium) 25 Mg Tab, 1 TAB PO DAILY 07/14/25 Ferrous Gluconate (IRON) 27 Mg Tab, 27 MG PO, TAB 10/10/18 Vit W/ Ferrous Fumara (PNV FOLIC ACID + IRON MUL) + Iron Tab, 1 IRON OR, TAB 10/10/18 Albuterol Sulfate (Albuterol Sulfate) 2 Mg Tab, 2 MG PO Q6HP PRN for SHORTNESS OF BREATH, MG 08/19/17 Current Medications Current Medications Medications (Trade) Dose Ordered Sig/Bret Route PRN Reason Start Time Stop Time Status Last Admin Sodium Chloride 1,000 ml @ 100 mls/hr Q10H IV 07/14/25 08:15 07/14/25 08:44 Acetaminophen/ Hydrocodone Bitart ([place] 5/325MG Tab) 1 tab Q4HP PRN PO MODERATE PAIN (4-6 PAIN SCALE) 07/14/25 08:15 Ondansetron HCl (Zofran) 4 mg Q4HP PRN IV NAUSEA / VOMITING 07/14/25 08:15 Docusate Sodium (Colace Capsule) 100 mg BIDPRN PRN PO FOR CONSTIPATION 07/14/25 08:15 Acetaminophen (Tylenol Tablet) 650 mg Q6HP PRN PO PAIN SCALE 1-3 OR TEMP>100.4 07/14/25 08:15 Morphine Sulfate 2 mg Q4HPRN PRN IV SEVERE PAIN (7-10 PAIN SCALE) 07/14/25 08:30 Ceftriaxone Sodium 50 ml @ 100 mls/hr DAILY@09 IV 07/14/25 08:52 07/14/25 08:53 DC Metronidazole 100 ml @ 100 mls/hr Q8HR IV 07/14/25 14:00 Losartan Potassium (Cozaar Tablet) 25 mg DAILY PO 07/14/25 10:00 Ceftriaxone Sodium 50 ml @ 100 mls/hr DAILY@09 IV 07/15/25 09:00 Vital Signs Vital Signs Date Time Temp Pulse Resp B/P (MAP) Pulse Ox O2 Delivery O2 Flow Rate FiO2 07/14/25 08:51 61 18 146/74 (98) 100 07/14/25 08:51 Room Air* 0 21 07/14/25 06:13 98.0 98.0 Physical Exam GEN: Age-appropriate obese female in no acute distress. Alert. HEENT: Normocephalic atraumatic. Moist mucous membranes. Anicteric sclerae. CV: RRR Respiratory: CTAB ABD: Obese abdomen with currently no tenderness to palpation after pain medications Abdominal ultrasound: Gallstones. Common bile duct measuring 0.3 cm. Positive sonographic Plascencia's sign concerning for acute cholecystitis. Labs/Diagnostic Data Labs Test 07/14/25 08:30 07/14/25 02:10 Range/Units White Blood Count 7.0 4.4-10.8 10^3/uL Red Blood Count 4.01 4.0-5.20 10^6/uL Hemoglobin 10.3 L 12.2-16.2 g/dL Hematocrit 31.8 L 36.0-46.0 % Mean Corpuscular Volume 79.3 L 80.0-100.0 fL Mean Corpuscular Hemoglobin 25.7 L 28.0-32.0 pg Mean Corpuscular Hemoglobin Concent 32.4 32.0-36.0 g/dL Red Cell Distribution Width 16.1 H 11.8-14.3 % Platelet Count 349 140-450 10^3/uL Mean Platelet Volume 8.0 6.9-10.8 fL Neutrophils (%) (Auto) 74.2 37.0-80.0 % Lymphocytes (%) (Auto) 20.6 10.0-50.0 % Monocytes (%) (Auto) 3.5 0.0-12.0 % Eosinophils (%) (Auto) 1.4 0.0-7.0 % Basophils (%) (Auto) 0.3 0.0-2.0 % Neutrophils # (Auto) 5.2 1.6-8.6 10 ^3/uL Lymphocytes # (Auto) 1.4 0.4-5.4 10 ^3/uL Monocytes # (Auto) 0.2 0-1.3 10 ^3/uL Eosinophils # (Auto) 0.1 0-0.8 10 ^3/uL Basophils # (Auto) 0 0-0.2 10 ^3/uL Nucleated Red Blood Cells 0.0 % Sodium Level 138 136-145 mmol/L Potassium Level 4.0 3.5-5.1 mmol/L Chloride Level 104 98-107 mmol/L Carbon Dioxide Level 26 20-31 mmol/L Anion Gap 8 5-15 Blood Urea Nitrogen 13 9-23 mg/dL Creatinine 0.88 0.550-1.02 mg/dL Glomerular Filtration Rate Calc 85 >90 mL/min BUN/Creatinine Ratio 14.8 10.0-20.0 Serum Glucose 164 H 74-106 mg/dL Calcium Level 9.5 8.7-10.4 mg/dL Total Bilirubin 0.4 0.2-1.0 mg/dL Direct Bilirubin 0.1 <0.3 mg/dL Aspartate Amino Transferase (AST) 10 L 13-40 U/L Alanine Aminotransferase (ALT) 10 7-40 U/L Alkaline Phosphatase 92 46-116 U/L Total Protein 7.1 5.7-8.2 g/dL Albumin 4.2 3.2-4.8 g/dL Lipase 32 12-53 U/L Beta HCG, Quantitative 0.5 L 1.5-4.2 mIU/mL Assessment 1. Cholecystitis Plan/Recommendation 1. Laparoscopic cholecystectomy possible open surgery Informed consent: The surgery and its risks including but not limited to infection, bleeding requiring possible blood transfusion with the risk of hepatitis or HIV infection, possible open surgery, possible cystic duct leak or retained common bile duct stone requiring further intervention such as an ERCP, possible perioperative MO or stroke were explained to the patient. All questions were answered to her satisfaction. She expressed verbal understanding and wished to proceed with the surgery. Plan discussed with: Patient VY THOMSON MD Jul 14, 2025 09:37
[2025-07-14 10:30] VITALS: BP 119/55; PULSE 62; RESP 20; TEMP 97.9; O2SAT 100; O2SAT 99
[2025-07-14] MEDS: ceFAZolin 2 GM/D5W50ml 50 ML IV ONE (11:02)
[2025-07-14] MEDS ORDERED: GLYCOPYRROLATE 0.2 MG/ML 1ML VIAL ONE (11:26)
[2025-07-14] MEDS ORDERED: PROPOFOL 10 MG/ML 20 ML IV ONE (11:26)
[2025-07-14] MEDS ORDERED: ONDANSETRON HCL 4 MG/2 ML VIAL ONE (11:26)
[2025-07-14] MEDS ORDERED: KETOROLAC TROMETH 30 MG/ML 1ML VIAL ONE (11:26)
[2025-07-14] MEDS ORDERED: SUGAMMADEX 200mg/2ml Vial (100MG/ML) IV ONE (11:26)
[2025-07-14] MEDS ORDERED: ROCURONIUM 10MG/ML 10ML VIAL IV ONE (11:26)
[2025-07-14] MEDS ORDERED: LIDOCAINE 2%HCL (LOCAL ANESTH.) INJ 20ML MDV ONE ×2 (11:26→12:13)
[2025-07-14] MEDS ORDERED: fentaNYL CITRATE 100 MCG/2 ML VL ONE (11:27)
[2025-07-14] MEDS ORDERED: KETAMINE 50mg/ML 1ml syringe ONE (11:27)
[2025-07-14] MEDS: CELECOXIB 100 MG CAP PO ONE (11:31)
[2025-07-14] MEDS: GABAPENTIN 400 MG CAP PO ONE (11:31)
[2025-07-14] MEDS: ACETAMINOPHEN IV 1000 MG/100ML (10MG/ML) IV ONE (11:31)
[2025-07-14] MEDS ORDERED: ceFAZolin 1GM VL ONE (11:35)
--- NOTE | 2025-07-14 11:56 | DVHPN2 ---
Progress Note Date Seen: Jul 14, 2025 Medical Necessity Reason Pt with a Central, PICC or Fol: No Subjective Patient reports: No new complaints Review of Systems: HEENT:Normal, CVS:Normal, RESPIRATORY:Normal, GI:Normal, :Normal, MSK:Normal, NEURO:Normal Objective vital signs Vital Sign Date Time Temp Pulse Resp B/P (MAP) Pulse Ox O2 Delivery O2 Flow Rate FiO2 07/14/25 10:30 97.9 62 20 119/55 (76) 100 97.9 07/14/25 08:51 Room Air* 0 21 medications Current Medications Medications Dose Ordered Sig/Bret Route Start Time Stop Time Status Last Admin Dose Admin Sodium Chloride 1,000 ml @ 100 mls/hr Q10H IV 07/14/25 08:15 07/14/25 08:44 100 MLS/HR Acetaminophen/ Hydrocodone Bitart 1 tab Q4HP PRN PO 07/14/25 08:15 Ondansetron HCl 4 mg Q4HP PRN IV 07/14/25 08:15 Docusate Sodium 100 mg BIDPRN PRN PO 07/14/25 08:15 Acetaminophen 650 mg Q6HP PRN PO 07/14/25 08:15 Morphine Sulfate 2 mg Q4HPRN PRN IV 07/14/25 08:30 Metronidazole 100 ml @ 100 mls/hr Q8HR IV 07/14/25 14:00 Losartan Potassium 25 mg DAILY PO 07/14/25 10:00 Ceftriaxone Sodium 50 ml @ 100 mls/hr DAILY@09 IV 07/15/25 09:00 Examination: GENERAL:Normal, HEENT:Normal, NECK:Normal, LUNGS:Normal, CVS:Normal, ABDOMEN:Normal, MSK:Normal, SKIN:Normal, NEURO:Normal, :Normal laboratory and microbiology Laboratory Tests 07/14/25 02:10 Test 07/14/25 02:10 Range/Units Serum Glucose 164 H 74-106 mg/dL Problem List/Assessment/Plan Problem List/Assessment/Plan #1 gallstones with acute eusebio: ivf, iv antibiotics #2 morbid obesity #3 htn #4 asthma Plan discussed with: Other (rn) My Orders My Orders Orders - BAO RO MD Procedure Category Date Status Time Urinalysis LAB 07/14/25 Uncollected 11:52 Date of Service: Jul 14, 2025 Billing Provider: BAO RO MD Common Visit Codes: [id number] INP/OBS CARE(HIGH) BAO RO MD Jul 14, 2025 11:56
[2025-07-14] MEDS: LIDOCAINE W/ EPINEPHRINE 1% 20ML VIAL ONE (12:31)
[2025-07-14] MEDS: BUPIVACAINE HCL 0.25% P/F 10 ML VIAL ONE (12:31)
[2025-07-14 12:38] VITALS: PULSE 67; RESP 22; O2SAT 97
--- NOTE | 2025-07-14 12:40 | DVHOP2 ---
Operative Report - 2 Report Details Date: 07/14/25 Preop Diagnosis: 1. Cholecystitis Postop Diagnosis: 1. Same Surgeon: Vy Thomson MD Clinical Social Work Aide: None Anesthesiologist: Vy Yost CRNA Anesthesia: General, Local Consent: The surgery and its risks including but not limited to infection, bleeding requiring possible blood transfusion with the risk of hepatitis or HIV infection, possible open surgery, possible cystic duct leak or retained common bile duct stone requiring further intervention such as an ERCP, possible perioperative [place] or stroke were explained to the patient. All questions were answered to her satisfaction. She expressed verbal understanding and wished to proceed with the surgery. Complications: None Estimated Blood Loss: 40 mL Fluids: 800 mL Name of Procedure Performed Laparoscopic cholecystectomy Procedure Details Procedure Details: After induction of general anesthesia, patient's abdomen was prepped and draped in standard surgical fashion. A small infraumbilical incision was made and this incision was taken through the abdominal wall down to the fascia which was opened sharply. Peritoneum was then bluntly divided gaining access to the intra-abdominal cavity. Interrupted 0 Vicryl sutures were placed through the fascial incision and using an open technique, Isaak trocar was introduced and secured using the Vicryl sutures. Abdomen was then insufflated to 15 mmHg and camera was inserted. Visual examination of the intestine under the fascial incision appeared normal without injury. Under direct visualization, a 5 mm bladeless trocar was placed in the subxiphoid region and two additional 5 mm bladeless trocars were placed in the right upper quadrant all under direct visualization. Examination of the right upper quadrant revealed slightly distended gallbladder which was grasped and retracted in a cephalad direction. Infundibulum was retracted laterally and careful blunt dissection was performed to identify the cystic duct which appeared normal in size. This was clipped and divided using Endoclips without complication. The cystic artery was located just next to the cystic duct and this was also clipped and divided using Endoclips without complication. Gallbladder was then removed from the liver bed using electrocautery. There was no bile or stone spillage during the maneuver. Gallbladder was then removed from the abdominal cavity using an endo pouch bag and sent off the surgical field. Abdomen was then re-insufflated and hemostasis in the liver bed was achieved using electrocautery. Right upper quadrant was then well irrigated until fluid was clear. Trocars were then removed under direct visualization as the abdomen was deflated. Additional interrupted 0 Vicryl sutures were placed through the fascial incision and the sutures were tied down closing off the infraumbilical fascia. Surgical sites were irrigated injected with 20 mL of 1% lidocaine with epinephrine and 0.25% Marcaine. Surgical sites were irrigated and skin incision was then closed using 4-0 Monocryl sutures in subcuticular fashion. Surgical sites were cleaned and dried and dressings were applied. Sponge, needle, instrument count at the end of the case were reported to be correct by the nursing staff. The patient tolerated procedure well and was awake, extubated and transferred to recovery in stable condition. Specimen: Gallbladder Condition Stable Disposition Still a Patient VY THOMSON MD Jul 14, 2025 12:40
[2025-07-14] MEDS ORDERED: NALOXONE HCL 0.4 MG/ML VIAL IV PRN (12:45)
[2025-07-14] MEDS ORDERED: FLUMAZENIL 0.1 MG/ML INJ 10ML MDV IV PRN (12:45)
[2025-07-14] MEDS ORDERED: NITROGLYCERIN 0.4 MG SL TAB SL PRN (12:45)
[2025-07-14] MEDS ORDERED: fentaNYL CITRATE 100 MCG/2 ML VL IV PRN (12:45)
[2025-07-14] MEDS: hydrALAZINE HCL 20 MG/ML VL IV PRN (12:57)
[2025-07-14] MEDS: hydrALAZINE HCL 20 MG/ML VL IV ONE ×3 (13:02→13:12)
[2025-07-14] MEDS: HYDROmorphone HCL 2 MG/ML VL/or syr IV PRN (13:29)
[2025-07-14] MEDS: LOSARTAN POTASSIUM 25 MG TAB PO SCH (13:42)
[2025-07-14 17:37] VITALS: BP_SYST 127; BP_SYST 143; BP_DIAS 67; BP_DIAS 68; PULSE 68; RESP 18; TEMP 98.3; O2SAT 98
[2025-07-14] MEDS: HYDROcodone-ACET 5/325MG TAB PO PRN (18:28)
[2025-07-14 19:57] LABS: Urine Protein, UAD Negative (Negative)
[2025-07-14 20:00] VITALS: PULSE 70; RESP 20; O2SAT 100
[2025-07-14 21:00] VITALS: BP 157/91; PULSE 70; RESP 20; TEMP 98.2; O2SAT 100
[2025-07-15 01:07] VITALS: BP 143/87; PULSE 62; RESP 20; TEMP 98.1; O2SAT 97
[2025-07-15 05:00] VITALS: BP 144/80; PULSE 68; RESP 20; TEMP 98.2; O2SAT 94
[2025-07-15] MEDS: ACETAMINOPHEN 325 MG TAB PO PRN (05:22)
[2025-07-15 06:41] LABS: Nucleated Red Blood Cells % 0.0 %
[2025-07-15 06:45] LABS: Hematocrit 31.9 % (36.0-46.0); Hemoglobin 10.4 g/dL (12.2-16.2); Mean Corpuscular Hemoglobin 26.1 pg (28.0-32.0); Mean Corpuscular Volume 80.3 fL (80.0-100.0)
[2025-07-15 06:59] LABS: Alanine Aminotransferase 20 U/L (7-40); Alkaline Phosphatase 88 U/L (46-116); Calcium 9.4 mg/dL (8.7-10.4); Chloride 107 mmol/L (98-107)
[2025-07-15 07:00] LABS: Anion Gap 9 (5-15); BUN/Creatinine Ratio 11.8 (10.0-20.0); Carbon Dioxide 24 mmol/L (20-31); Potassium 3.9 mmol/L (3.5-5.1); Sodium 140 mmol/L (136-145); Total Protein 6.8 g/dL (5.7-8.2)
[2025-07-15 07:01] LABS: Albumin 4.0 g/dL (3.2-4.8); Bilirubin, Total 0.5 mg/dL (0.2-1.0)
[2025-07-15 07:03] LABS: Blood Urea Nitrogen 8 mg/dL (9-23); Glucose 126 mg/dL (74-106)
[2025-07-15 08:00] VITALS: PULSE 59; RESP 17; O2SAT 96
[2025-07-15 08:49] VITALS: BP 136/75; PULSE 59; RESP 16; TEMP 98.4; O2SAT 94
--- NOTE | 2025-07-15 09:09 | DVHPN2 ---
Progress Note - Dictate Date Seen: Jul 15, 2025 Medical Necessity Reason Pt with a Central, PICC or Fol: No Subjective E: no major events o/n. no complaints. vital signs Vital Sign Date Time Temp Pulse Resp B/P (MAP) Pulse Ox O2 Delivery O2 Flow Rate FiO2 07/15/25 08:49 98.4 59 16 136/75 (95) 94 98.4 07/14/25 20:00 Room Air* 0 21 Total Intake and Output 07/14/25 07/14/25 07/15/25 15:00 23:00 07:00 Intake Total 50 ml 100 ml 520 ml Balance 50 ml 100 ml 520 ml medications Current Medications Medications Dose Ordered Sig/Bret Route Start Time Stop Time Status Last Admin Dose Admin Acetaminophen/ Hydrocodone Bitart 1 tab Q4HP PRN PO 07/14/25 08:15 07/14/25 18:28 1 TAB Ondansetron HCl 4 mg Q4HP PRN IV 07/14/25 08:15 Docusate Sodium 100 mg BIDPRN PRN PO 07/14/25 08:15 Acetaminophen 650 mg Q6HP PRN PO 07/14/25 08:15 07/15/25 05:22 650 MG Morphine Sulfate 2 mg Q4HPRN PRN IV 07/14/25 08:30 Metronidazole 100 ml @ 100 mls/hr Q8HR IV 07/14/25 14:00 07/15/25 05:20 100 MLS/HR Losartan Potassium 25 mg DAILY PO 07/14/25 10:00 07/14/25 13:42 25 MG Ceftriaxone Sodium 50 ml @ 100 mls/hr DAILY@09 IV 07/15/25 09:00 Nitroglycerin 0.4 mg Q5MINP PRN SL 07/14/25 12:45 Morphine Sulfate 2 mg Q30M PRN IV 07/14/25 12:45 Sodium Chloride 1,000 ml @ 75 mls/hr [id number] IV 07/14/25 12:45 07/15/25 02:05 75 MLS/HR objective GEN: NAD ABD: surgical dressings clean and dry. laboratory and microbiology Laboratory Tests 07/15/25 05:32 Test 07/15/25 05:32 Range/Units Serum Glucose 126 H 74-106 mg/dL Assessment/Plan A: 1. s/p lap cholecystectomy POD #1 doing well. P: 1. stable from surgery POV for DC home 2. call [phone] for f/u appt. 3. remove top bandages tomorrow. Leave steristrips on. ok to get incisions wet tomorrow. Plan discussed with: Patient VY THOMSON MD Jul 15, 2025 09:09
--- NOTE | 2025-07-15 11:24 | DVHDS2 ---
Discharge Summary Date of Admission Jul 14, 2025 at 08:09 Date of Discharge: Jul 15, 2025 Labs/Diagnostic Data: Laboratory Results Test 07/15/25 05:32 07/14/25 16:48 07/14/25 08:30 07/14/25 05:52 White Blood Count 9.1 10^3/uL (4.4-10.8) Red Blood Count 3.98 10^6/uL (4.0-5.20) Hemoglobin 10.4 g/dL (12.2-16.2) Hematocrit 31.9 % (36.0-46.0) Mean Corpuscular Volume 80.3 fL (80.0-100.0) Mean Corpuscular Hemoglobin 26.1 pg (28.0-32.0) Mean Corpuscular Hemoglobin Concent 32.5 g/dL (32.0-36.0) Red Cell Distribution Width 16.3 % (11.8-14.3) Platelet Count 385 10^3/uL (140-450) Mean Platelet Volume 8.6 fL (6.9-10.8) Neutrophils (%) (Auto) 84.0 % (37.0-80.0) Lymphocytes (%) (Auto) 13.5 % (10.0-50.0) Monocytes (%) (Auto) 2.5 % (0.0-12.0) Eosinophils (%) (Auto) 0.0 % (0.0-7.0) Basophils (%) (Auto) 0.0 % (0.0-2.0) Neutrophils # (Auto) 7.7 10 ^3/uL (1.6-8.6) Lymphocytes # (Auto) 1.2 10 ^3/uL (0.4-5.4) Monocytes # (Auto) 0.2 10 ^3/uL (0-1.3) Eosinophils # (Auto) 0 10 ^3/uL (0-0.8) Basophils # (Auto) 0 10 ^3/uL (0-0.2) Nucleated Red Blood Cells 0.0 % Sodium Level 140 mmol/L (136-145) Potassium Level 3.9 mmol/L (3.5-5.1) Chloride Level 107 mmol/L (98-107) Carbon Dioxide Level 24 mmol/L (20-31) Anion Gap 9 (5-15) Blood Urea Nitrogen 8 mg/dL (9-23) Creatinine 0.68 mg/dL (0.550-1.02) Glomerular Filtration Rate Calc 113 mL/min (>90) BUN/Creatinine Ratio 11.8 (10.0-20.0) Serum Glucose 126 mg/dL (74-106) Calcium Level 9.4 mg/dL (8.7-10.4) Total Bilirubin 0.5 mg/dL (0.2-1.0) Aspartate Amino Transferase (AST) 24 U/L (13-40) Alanine Aminotransferase (ALT) 20 U/L (7-40) Alkaline Phosphatase 88 U/L (46-116) Total Protein 6.8 g/dL (5.7-8.2) Albumin 4.0 g/dL (3.2-4.8) POC Glucose 160 mg/dl (70-106) Prothrombin Time 10.6 sec (9.3-11.8) Prothrombin Time INR 1.00 (0.9-1.15) Activated Partial Thromboplast Time 29.6 SEC (24.5-34.5) Urine Color Light-yellow (Yellow) Urine Clarity Clear (Clear) Urine pH 7.0 (5.0-9.0) Urine Specific [place] 1.023 (1.001-1.035) Urine Protein Negative (Negative) Urine Ketones Negative (Negative) Urine Blood Trace /uL (Negative) Urine Nitrite Negative (Negative) Urine Bilirubin Negative (Negative) Urine Urobilinogen Normal mg/dL (Negative) Urine Leukocyte Esterase Negative /uL (Negative) Urine RBC 3 /hpf (0 - 4) Urine Microscopic WBC 1 /HPF (0-5) Urine Squamous Epithelial Cells Few /hpf (<5) Urine Bacteria None seen /hpf (None Seen) Urine Glucose Normal mg/dL (Normal) Test 07/14/25 02:10 Hemoglobin A1c 6.7 % A1C (<5.7) Direct Bilirubin 0.1 mg/dL (<0.3) Lipase 32 U/L (12-53) Beta HCG, Quantitative 0.5 mIU/mL (1.5-4.2) Other Laboratory Tests 07/15/25 05:32 Brief Hx & Hospital Course: see dictated note Condition at Discharge: Good Final Diagnosis/Problems List lap eusebio Discharge Disposition: Home Discharge Instruct/Medications Diet: Cardiac 2g Na,low cholest Activity: No Restrictions, As Tolerated Follow Up/Referral: schedule appt with surgery in 1 wk Medications: script to pharmacy Scheduled Fluticasone-Salmeterol (Advair Diskus 250/50), 1 PUFF IN BID Losartan Potassium (Losartan Potassium), 1 TAB PO DAILY, (Reported) Scheduled PRN Albuterol Sulfate (Albuterol Sulfate), 2 MG PO Q6HP PRN for SHORTNESS OF BREATH, (Reported) Miscellaneous Medications Ferrous Gluconate (Iron), 27 MG PO, (Reported) Vit W/ Ferrous Fumara (Pnv Folic Acid + Iron Mul), 1 IRON OR, (Reported) Discharge Statement: "Patient was advised to return to the ER or call 911 if any headaches, dizziness, shortness of breath, chest pain, abdominal pain, bleeding, fevers, or worsening of medical condition. Patient was counseled about treatment plan, medications, possible side effects, patientverbalized understanding. All questions were answered to the best of my ability. This discharge took greater then 30 minutes in planning, reviewing documentation, counseling the patient, and discussing with other team members." ASSESSMENT ASSESSMENT Assessment sofy kaplan Date of Service: Jul 15, 2025 Billing Provider: BAO RO MD Common Visit Codes: 12254-[id number] DISCH DAY >30min BAO RO MD Jul 15, 2025 11:24
[2025-07-15] MEDS ORDERED: TRAM-626 PO (11:27)
[2025-07-15] MEDS ORDERED: CEPH500T PO (11:27)
[2025-07-15] MEDS ORDERED: DOCU-94 PO (11:27)
--- NOTE | 2025-07-15 11:49 | DVHDS ---
DATE OF DISCHARGE: 07/15/2025 HISTORY OF PRESENT ILLNESS: The patient is a 40-year-old lady who is admitted with a history of abdominal pain and has a history of new-onset diabetes, hypertension, and asthma. HOSPITAL COURSE: The patient was seen in surgical consult by Dr. Garcia. Gallbladder ultrasound showed evidence of gallstones with likely acute cholecystitis. The patient underwent laparoscopic cholecystectomy on 07/14/2025. The patient is now doing well and is tolerating an oral diet. She has been cleared for discharge by Dr. Garcia. She will be discharged home, to be on cephalexin 500 mg t.i.d. for 7 days and tramadol p.r.n. for pain. She will follow up with Surgery in the next 1-2 weeks. FINAL DIAGNOSES: * Cholelithiasis with questionable acute cholecystitis. * Morbid obesity. * New-onset diabetes. * Hypertension. * Asthma. Time spent in discharge planning and review of plan with the patient and nursing was 38 minutes. MD LEORA Carrera/MADDIE TID: [id number] RECEIPT: [id number]
[2025-07-15 11:58] VITALS: BP 136/75; TEMP 36.9
[2025-07-15 12:45] VITALS: BP 132/72; PULSE 57; RESP 16; TEMP 98.3; O2SAT 96
== END 2025-07-15 13:00 | disposition home or self-care (01) | DRG 263 ==
LOC: ER 01:06 → OVERFLOW 08:09 → WEST WING 17:29
PROVIDERS: ADMIT Internal Medicine; ATTEND Internal Medicine
PROC: 0FT44ZZ Resection of Gallbladder, Percutaneous Endoscopic Approach (ICD-10-PCS; principal; 2025-07-14 11:32)
DX: K80.00 Calculus of gallbladder with acute cholecystitis without obstruction (principal); R16.0 Hepatomegaly, not elsewhere classified; E11.9 Type 2 diabetes mellitus without complications; E66.01 Morbid (severe) obesity due to excess calories; I10 Essential (primary) hypertension; J45.909 Unspecified asthma, uncomplicated; K76.0 Fatty (change of) liver, not elsewhere classified; Z68.43 Body mass index [BMI] 50.0-59.9, adult; Z82.49 Family history of ischemic heart disease and other diseases of the circulatory system; Z82.5 Family history of asthma and other chronic lower respiratory diseases; Z91.013 Allergy to seafood
CPT/HCPCS: 36415; 71045; 76705; 80048; 80053; 80076; 81001; 82962; 83036; 83690; 84702; 85025; 85610; 85730; 96374; G0378; J0131; J0690; J1100; J1885; J2405; J2704; J3490